=== PATIENT | female | born 2000 | race Caucasian/White ===

== ENCOUNTER 2024-04-06 01:22 | Emergency (ER) | payer MEDICAID ==
--- NOTE | 2024-04-06 01:33 | ED Physician Documentation ---
PD HPI ABD PAIN - Stated complaint Stated Complaint: L SIDE PX - Chief complaint Chief Complaint: Abd Pain - History obtained from History obtained from: Patient - Additional information Additional information: HPI from patient. Patient complains of episodic left flank/pelvic pain over the past 4 to 5 weeks. She describes the pain as a cramping sensation. Patient says she is approximately 6 weeks , G2, P1. Patient is visiting [facility] from [place];Patient did not realize she was until about a week ago. When she realized (by home- test) that she was , and commendation with the ongoing left flank/pelvic pain, she went to a women's clinic in [facility]). Per patient, an ultrasound was undertaken and patient says that she was told the ultrasound showed intrauterine without abnormality. She says she was told that there appeared to be a small left-sided ovarian cyst.She presents to the emergency department this time due to the ongoing left pelvic pain. Patient said she had scant vaginal spotting a few days ago but not today/tonight. Denies nausea, vomiting, fever. There are no exacerbating nor ameliorating factors regarding the pelvic pain. She denies urinary frequency but has had mild burning dysuria over the past 1 to 2 days. Review of Systems GI: reports: Abdominal Pain (LLQ/left pelvis). denies: Nausea, Vomiting : reports: Dysuria, Now EGA (6 weeks). denies: Frequency Musculoskeletal: denies: Back pain PD PAST MEDICAL HISTORY - Past Medical History Past Medical History: No - Past Surgical History Past Surgical History: No - Present Medications Home Medications: Ambulatory Orders Medication Instructions Recorded Confirmed Amox/Clav 875/125 [Augmentin 1 tablet PO Q12H 7 Days #14 tablet 04/06/24 875/125 Tab] - Allergies Allergies/Adverse Reactions: Allergies Allergy/AdvReac Type Severity Reaction Status Date / Time No Known Drug Allergies Allergy Verified 04/06/24 01:32 - Social History Does the pt smoke?: No Smoking Status: Never smoker PD ED PE NORMAL - Vitals Vital signs reviewed: Yes - General General: Alert and oriented X 3, No acute distress, Well developed/nourished - Cardiac Cardiac: RRR, No murmur - Respiratory Respiratory: No respiratory distress, Clear bilaterally - Abdomen Abdomen: Soft, Non distended, Other (mild LLQ/left anterior hemipelvic TTP without rebound or guarding) - Back Back: No CVA TTP Results - Vitals Vitals: Vital Signs - 24 hr 04/06/24 04/06/24 04/06/24 01:29 01:34 03:06 Temperature 36.8 C 36.2 C L Heart Rate 92 90 84 Respiratory 16 16 Rate Blood Pressure 117/76 111/63 O2 Saturation 98 99 Oxygen O2 Source Room air - Labs Labs: Laboratory Tests 04/06/24 04/06/24 04/06/24 01:40 01:55 01:55 WBC 10.8 RBC 4.77 Hgb 10.5 L Hct 34.9 L MCV 73.2 L MCH 22.0 L MCHC 30.1 L RDW 16.8 H Plt Count 321 MPV 10.5 Neut # (Auto) 6.9 H Lymph # (Auto) 2.7 [place]mort[place] # (Auto) 1.0 Eos # (Auto) 0.1 Baso # (Auto) 0.0 Absolute Nucleated RBC 0.00 Nucleated RBC % 0.0 Sodium 134 L Potassium 3.8 Chloride 105 Carbon Dioxide 21 Anion Gap 8.0 BUN 10 Creatinine 0.4 L Estimated GFR (MDRD) 194 Glucose 100 Calcium 9.7 Total Bilirubin 0.2 AST 18 ALT 15 Alkaline Phosphatase 52 Total Protein 7.1 Albumin 4.1 Globulin 3.0 Albumin/Globulin Ratio 1.4 Lipase 32 Urine Color YELLOW Urine Clarity CLEAR Urine pH 6.5 Ur Specific Mercer 1.020 Urine Protein NEGATIVE Urine Glucose (UA) NEGATIVE Urine Ketones NEGATIVE Urine Occult Blood NEGATIVE Urine Nitrite NEGATIVE Urine Bilirubin NEGATIVE Urine Urobilinogen 0.2 (NORMAL) Ur Leukocyte Esterase SMALL H Urine RBC 0-5 Urine WBC 6-10 H Ur Squamous Epith Cells MOD Squamous H Urine Bacteria Few Ur Microscopic Review Urine Culture Comments NOT INDICATED Urine HCG, Qual POSITIVE 04/06/24 02:50 WBC RBC Hgb Hct MCV MCH MCHC RDW Plt Count MPV Neut # (Auto) Lymph # (Auto) Th[place]mort[place] # (Auto) Eos # (Auto) Baso # (Auto) Absolute Nucleated RBC Nucleated RBC % Sodium Potassium Chloride Carbon Dioxide Anion Gap BUN Creatinine Estimated GFR (MDRD) Glucose Calcium Total Bilirubin AST ALT Alkaline Phosphatase Total Protein Albumin Globulin Albumin/Globulin Ratio Lipase Urine Color YELLOW Urine Clarity CLEAR Urine pH 6.5 Ur Specific Mercer 1.010 Urine Protein NEGATIVE Urine Glucose (UA) NEGATIVE Urine Ketones NEGATIVE Urine Occult Blood NEGATIVE Urine Nitrite NEGATIVE Urine Bilirubin NEGATIVE Urine Urobilinogen 0.2 (NORMAL) Ur Leukocyte Esterase SMALL H Urine RBC 0-5 Urine WBC 4-5 Ur Squamous Epith Cells FEW Squamous Urine Bacteria Few Ur Microscopic Review INDICATED Urine Culture Comments INDICATED Urine HCG, Qual PD Medical Decision Making - ED course Complexity details: reviewed results, re-evaluated patient, considered differential, d/w patient ED course: Ultrasound is not available at this hour in this emergency department but, fortunately, patient says she has already had an ultrasound in this which, per patient's description, was undertaken in an outpatient clinic to look into possible ectopic and that the results showed (again, per patient's description) normal IUP. No concerning nor diagnostic findings on CBC, ER abdominal panel; hgb/hct slightly below normal range (hgb 10.5), with low indices s/o chronic anemia. I discussed these results with patient and she has not been told she has low h/h before. This can be reevaluated in outpatient setting and I advised patient to discuss these results with her PCP. Her urinalysis has 6-10 WBC/hpf, although only few bacteria but also moderate squamous cells which suggests contaminated specimen. Given that she does report mild burning dysuria (although only on review of systems) in the setting of , I discussed options regarding this result. These options included submitting a second urinalysis and awaiting results, submitting a sample and providing paper prescription for Augmentin with patient to call later this morning for results and instruction as to whether to fill the prescription or not, or treating empirically. Patient opts for the second option and thus is provided a paper prescription for Augmentin and patient is to call later this morning for the results and further instruction regarding antibiotic. Even if she is positive for UTI, this would likely be coincident to her c/o pelvic pain; the etiology of her pelvic pain is not apparent at this time. Differential diagnosis includes, though not limited to, ovarian cyst, threatened miscarriage. Return precautions d/w patient. Departure - Departure Disposition: 01 Home, Self Care Clinical Impression: Pelvic pain during Condition: Good Instructions: ED Pelvic Pain [facility] Prescriptions: Amox/Clav 875/125 [Augmentin 875/125 Tab] 1 tablet PO Q12H 7 Days #14 tablet Comments: Your red blood cell levels (hemoglobin, hematocrit) were slightly below the n ormal range. These results are not nearly low enough to cause any symptoms nor require further emergent testing, but, as we discussed, you should mention these results to your primary care provider when you next follow-up with them. Your urinalysis was slightly abnormal with some white blood cells in the sample. While this might indicate a urinary tract infection, there are also many skin cells which suggest contamination from the skin and thus the results are invalidated. Because a urinary tract infection remains a possibility, I provided you with a prescription for a 1-week course of antibiotics (Augmentin); you can call the emergency department later this morning to inquire about the results of the second urinalysis, and fill the prescription and take antibiotics as prescribed if the results support the diagnosis of urinary tract infection. If the urinalysis is unremarkable, do not fill the prescription. When you call the ER, you will be advised as to whether the results are consistent with urinary tract infection. Discharge Date/Time: 04/06/24 03:06
[2024-04-06 01:46] LABS: BILIRUBIN,URINE NEGATIVE (NEGATIVE); GLUCOSE, URINE (UA) NEGATIVE (NEGATIVE); KETONES,URINE (UA) NEGATIVE (NEGATIVE); LEUKOCYTE ESTERASE, URINE SMALL (NEGATIVE); NITRITE,URINE NEGATIVE (NEGATIVE); OCCULT BLOOD,URINE NEGATIVE (NEGATIVE); PH,URINE 6.5 PH (5.0-7.5); PROTEIN,URINE NEGATIVE (NEGATIVE); UROBILINOGEN,URINE 0.2 (NORMAL) E.U./dL (NORMAL)
[2024-04-06 01:48] LABS: CLARITY,URINE CLEAR (CLEAR); HCG UR QUAL POSITIVE
[2024-04-06 01:52] LABS: RBC,URINE 0-5 /HPF (0-5); SQUAMOUS EPITHELIAL CELL,UR MOD Squamous (<= Few)
[2024-04-06 01:53] LABS: BACTERIA,URINE Few /HPF (None Seen)
[2024-04-06 01:57] LABS: BASOPHILS % (AUTO) 0.4 %; EOSINOPHILS # (AUTO) 0.1 10^3/uL (0.0-0.7); EOSINOPHILS % (AUTO) 0.9 %; HCT - HEMATOCRIT 34.9 % (37.0-47.0); HGB - HEMOGLOBIN 10.5 g/dL (12.0-16.0); LYMPHOCYTES # (AUTO) 2.7 10^3/uL (1.5-3.5); LYMPHOCYTES % (AUTO) 24.5 %; MEAN CORPUSCULAR HGB CONC 30.1 g/dL (32.0-36.0); MEAN CORPUSCULAR VOLUME 73.2 fL (81.0-99.0); MEAN PLATELET VOLUME 10.5 fL (7.9-10.8); MONOCYTES % (AUTO) 9.4 %; NEUTROPHILS # (AUTO) 6.9 10^3/uL (1.5-6.6); NEUTROPHILS % (AUTO) 63.6 %; PLT - PLATELET COUNT 321 10^3/uL (130-450); RED BLOOD COUNT 4.77 10^6/uL (4.20-5.40); RED CELL DISTRIBUTION WIDTH 16.8 % (12.0-15.0); WHITE BLOOD COUNT 10.8 x10^3/uL (4.8-10.8)
[2024-04-06 02:16] LABS: ALBUMIN 4.1 g/dL (3.2-5.5); ALBUMIN/GLOBULIN RATIO 1.4 (1.0-2.2); BILIRUBIN,TOTAL 0.2 mg/dL (0.2-1.0); CALCIUM 9.7 mg/dL (8.5-10.3); CREATININE 0.4 mg/dL (0.6-1.3); POTASSIUM 3.8 mmol/L (3.5-4.5); TOTAL PROTEIN 7.1 g/dL (6.4-8.9)
[2024-04-06 03:08] VITALS: BP 111/63; O2SAT 99
[2024-04-06 03:16] LABS: BILIRUBIN,URINE NEGATIVE (NEGATIVE); CLARITY,URINE CLEAR (CLEAR); GLUCOSE, URINE (UA) NEGATIVE (NEGATIVE); KETONES,URINE (UA) NEGATIVE (NEGATIVE); LEUKOCYTE ESTERASE, URINE SMALL (NEGATIVE); NITRITE,URINE NEGATIVE (NEGATIVE); OCCULT BLOOD,URINE NEGATIVE (NEGATIVE); PH,URINE 6.5 PH (5.0-7.5); PROTEIN,URINE NEGATIVE (NEGATIVE); UROBILINOGEN,URINE 0.2 (NORMAL) E.U./dL (NORMAL)
[2024-04-06 03:22] LABS: BACTERIA,URINE Few /HPF (None Seen); RBC,URINE 0-5 /HPF (0-5); SQUAMOUS EPITHELIAL CELL,UR FEW Squamous (<= Few)
--- NOTE | 2024-04-06 05:09 | ED Physician Documentation ---
ED Addendum - Addendum Addendum: 04/06/24 05:08 After patient was discharged, I followed up on the results of her second urinalysis and findings are NOT s/o UTI; patient does not need to fill the augmentin rx
== END 2024-04-06 03:06 | disposition home or self-care (01) ==
LOC: ED 01:22
DX: O26.891 Other specified pregnancy related conditions, first trimester (principal); R10.2 Pelvic and perineal pain; Z3A.01 Less than 8 weeks gestation of pregnancy
CPT/HCPCS: 36415; 80053; 81001; 81003; 81025; 83690; 85025; 87086; 99283